=== PATIENT | male | born 1985 | race Caucasian/White ===

== ENCOUNTER 2021-11-14 21:49 | Inpatient (IN) | payer OTHER ==
[2021-11-14] MEDS ORDERED: Lactated Ringers 1,000 ML IV SCH (22:30)
[2021-11-14 23:20] LABS: CHLORIDE,CL 94 mmol/L (98-107); SODIUM,NA 130 mmol/L (136-145)
[2021-11-14 23:22] LABS: ANION GAP 18.6 meq/L (7-15); ESTIMATED GFR 50 mL/min (>=60); PTT,PARTIAL THROMBOPLSTIN TIME 30.1 SEC (23.6-29.8)
[2021-11-14 23:23] LABS: CORONAVIRUS COVID-19 NAA NEGATIVE (NEGATIVE); RESPIRATORY SYNCYTIAL VIR NAA NEGATIVE (NEGATIVE)
[2021-11-14] MEDS ORDERED: cefTRIAXone 2 GM Vial IVPUSH SCH (23:45)
[2021-11-14] MEDS ORDERED: Azithromycin 500 MG in Sodium Chloride 0.9% 250 ML IV SCH (23:45)
[2021-11-15] MEDS: Sodium Chloride 0.9% 10 ML Syringe FLUSH PRN ×2 (00:09→00:57)
[2021-11-15] MEDS ORDERED: Sodium Chloride 0.9% 250 ML IV SCH (00:30)
[2021-11-15] MEDS ORDERED: Sodium Chloride 0.9% 1,000 ML IV SCH (01:00)
[2021-11-15] MEDS ORDERED: Acetaminophen 500 MG Tab PO PRN (01:06)
[2021-11-15] MEDS ORDERED: EPINEPHrine 1:10,000 1 MG/10 ML Syringe IVPUSH ONE ×4 (03:08→03:14)
[2021-11-15 06:08] VITALS: BP 128/88; PULSE 117
== END 2021-11-15 03:20 | disposition expired | DRG 194 ==
LOC: LL.ED 21:49 → LL.MS 23:35
PROVIDERS: ADMIT Physician Assistant; ATTEND Physician Assistant
PROC: 0BH17EZ Insertion of Endotracheal Airway into Trachea, Via Natural or Artificial Opening (ICD-10-PCS; principal; 2021-11-14)
PROC: 5A09357 Assistance with Respiratory Ventilation, Less than 24 Consecutive Hours, Continuous Positive Airway Pressure (ICD-10-PCS; 2021-11-14)
PROC: 5A12012 Performance of Cardiac Output, Single, Manual (ICD-10-PCS; 2021-11-14)
DX: J18.9 Pneumonia, unspecified organism (principal); N17.9 Acute kidney failure, unspecified; I46.9 Cardiac arrest, cause unspecified; R09.02 Hypoxemia; Z20.822 Contact with and (suspected) exposure to COVID-19
CPT/HCPCS: 0241U; 36415; 71045; 80053; 83605; 83735; 83880; 84100; 84484; 85025; 85610; 85730; 86140; 87040; 93005; 93010; 94761; 99223; 99239; 99285; J0171; J0456; J0696; J3370; J3490; J7050; J7060